=== PATIENT | male | born 1985 | race Caucasian/White ===

== ENCOUNTER 2017-08-14 10:04 | Inpatient (IN) | payer SELFPAY ==
[2017-08-14] MEDS: ONDANSETRON PF 4 MG/2 ML VIAL. IV (10:34)
[2017-08-14] MEDS: MORPHINE SULFATE 4 MG/ML DISP.SYRIN. IV ×5 (10:35→18:41)
[2017-08-14] MEDS ORDERED: ONDANSETRON PF 4 MG/2 ML VIAL. IV ×2 (10:45→12:45)
[2017-08-14] MEDS ORDERED: ACETAMINOPHEN 325 MG TABLET. PO (10:45)
[2017-08-14] MEDS: IV NORMAL SALINE 500ML BAG 500 ML IV (10:59)
[2017-08-14] MEDS ORDERED: 0.9 % SODIUM CHLORIDE 10 ML DISP.SYRIN. IV (11:15)
[2017-08-14] MEDS ORDERED: LACTULOSE 20 GM/30 ML SOLUTION. PO (11:15)
[2017-08-14] MEDS ORDERED: CALCIUM CARBONATE 500 MG TAB.CHEW PO (11:15)
[2017-08-14] MEDS ORDERED: MORPHINE SULFATE 2 MG/ML DISP.SYRIN. IV ×2 (11:15→12:45)
[2017-08-14] MEDS ORDERED: MAGNESIUM HYDROXIDE 2,400 MG/30 ML ORAL.SUSP. PO (11:15)
[2017-08-14 11:39] LABS: ADD MAN DIFF? NO
[2017-08-14 11:41] LABS: BASO % 0 % (0-3); EOS # 0.1 x10^3/uL (0.0-0.7); EOS % 1 % (0-3); HEMATOCRIT 42.1 % (39.0-53.0); HEMOGLOBIN 14.5 g/dL (13.0-17.5); LYMPH # 1.2 x10^3/uL (1.0-4.8); LYMPH % 8 % (24-48); MEAN CORPUSCULAR HEMOGLOBIN 28 pg (25-35); MEAN CORPUSCULAR HGB CONC 35 g/dL (31-37); MEAN CORPUSCULAR VOLUME 82 fL (79-100); MONO # 0.8 x10^3/uL (0.0-1.1); MONO % 5 % (0-9); NEUT # 13.5 x10^3uL (1.8-7.7); NEUT % 86 % (31-73); PLATELET COUNT 297 x10^3/uL (140-400); RED BLOOD COUNT 5.13 x10^6/uL (4.30-5.70); RED CELL DISTRIBUTION WIDTH 12.6 % (11.5-14.5); WHITE BLOOD COUNT 15.6 x10^3/uL (4.0-11.0)
[2017-08-14 11:55] LABS: ANION GAP 10 (6-14); BLOOD UREA NITROGEN 23 mg/dL (8-26); CARBON DIOXIDE 25 mmol/L (21-32); CHLORIDE 104 mmol/L (98-107); GFR 87.7; GLUCOSE 99 mg/dL (70-99); POTASSIUM 3.8 mmol/L (3.5-5.1); SODIUM 139 mmol/L (136-145)
[2017-08-14] MEDS ORDERED: fentaNYL PF VIAL 100 MCG/2 ML VIAL (12:17)
[2017-08-14] MEDS ORDERED: ROCURONIUM 50 MG/5 ML VIAL. ×2 (12:17→13:27)
[2017-08-14] MEDS ORDERED: MIDAZOLAM HCL/PF 2 MG/2 ML VIAL. (12:17)
[2017-08-14] MEDS ORDERED: NEOSTIGMINE METHYLSULFATE 5 MG/5 ML SYRINGE. (12:17)
[2017-08-14] MEDS ORDERED: SUCCINYLCHOLINE 200 MG/10 ML VIAL. (12:17)
[2017-08-14] MEDS ORDERED: GLYCOPYRROLATE 1 MG/5 ML VIAL. (12:18)
[2017-08-14] MEDS ORDERED: PROPOFOL 20 ML IV ×2 (12:18→12:54)
[2017-08-14] MEDS ORDERED: DEXAMETHASONE SOD PHOS 20 MG/5 ML VIAL. (12:18)
[2017-08-14] MEDS ORDERED: LIDOCAINE 2% PF Vial for OR 5 ML VIAL. (12:18)
[2017-08-14] MEDS ORDERED: ONDANSETRON PF 4 MG/2 ML VIAL. (12:18)
[2017-08-14] MEDS ORDERED: KETOROLAC 30 MG/ML INJ FOR OR. INJ (12:18)
[2017-08-14] MEDS: IV RINGERS,LACTATED 1000ML 1,000 ML IV ×3 (12:26→20:22)
[2017-08-14] MEDS ORDERED: LIDOCAINE 1% PF 2 ML VIAL. ID ×2 (12:30→12:45)
[2017-08-14] MEDS ORDERED: MIDAZOLAM HCL/PF 2 MG/2 ML VIAL. IV (12:30)
[2017-08-14] MEDS ORDERED: fentaNYL PF VIAL 100 MCG/2 ML VIAL IV ×4 (12:30→12:45)
[2017-08-14 12:42] LABS: % BANDS 4 % (0-9); % EOS 1 % (0-5); % LYMPHS 5 % (24-48); % SEGS 90 % (35-66); PLT ESTIMATE ADEQUATE (ADEQUATE)
[2017-08-14] MEDS ORDERED: PROCHLORPERAZINE 10 MG/2 ML VIAL. IV (12:45)
[2017-08-14] MEDS: LIDOCAINE 1% PF 30 ML VIAL. (13:06)
[2017-08-14] MEDS: BUPIVACAINE MPF 0.5% 30 ML VIAL. (13:06)
[2017-08-14] MEDS ORDERED: PHENYLEPHRINE in 0.9% NACL PF 1 MG/10 ML SYRINGE. IV (13:11)
[2017-08-14] MEDS: IV 1/2 NORMAL SALINE 1,000 ML IV ×2 (15:22→22:00)
[2017-08-14] MEDS: DIPHTH,PERTUSS(ACELL),TET TOX 0.5 ML DISP.SYRIN. VAX IM (20:28)
[2017-08-14] MEDS: oxyCODONE/APAP 5/325 1 TAB TABLET PO (21:15)
[2017-08-14] MEDS: SENNOSIDES/DOCUSATE 8.6/50MG TABLET. PO (22:54)
[2017-08-14] MEDS: oxyCODONE IR 5 MG TABLET PO (22:54)
[2017-08-15] MEDS: oxyCODONE/APAP 5/325 1 TAB TABLET PO (01:04)
[2017-08-15] MEDS: oxyCODONE IR 5 MG TABLET PO (04:56)
[2017-08-15] MEDS: oxyCODONE/APAP 10/325 1 TAB TABLET PO ×2 (08:32→12:32)
[2017-08-15] MEDS: SENNOSIDES/DOCUSATE 8.6/50MG TABLET. PO (09:37)
== END 2017-08-15 12:11 | disposition home or self-care (01) | DRG 512 ==
LOC: ER 10:04 → 4 NORTH 10:38
PROC: 0PSJ04Z Reposition Left Radius with Internal Fixation Device, Open Approach (ICD-10-PCS; principal; 2017-08-14 12:41)
PROC: 0PSL04Z Reposition Left Ulna with Internal Fixation Device, Open Approach (ICD-10-PCS; 2017-08-14 12:41)
PROC: 2W3DX1Z Immobilization of Left Lower Arm using Splint (ICD-10-PCS; 2017-08-14 12:41)
DX: S52.252B Displaced comminuted fracture of shaft of ulna, left arm, initial encounter for open fracture type I or II (principal); S52.352B Displaced comminuted fracture of shaft of radius, left arm, initial encounter for open fracture type I or II; Z82.49 Family history of ischemic heart disease and other diseases of the circulatory system; V29.88XA Motorcycle rider (driver) (passenger) injured in other specified transport accidents, initial encounter; Y93.55 Activity, bike riding; Y92.828 Other wilderness area as the place of occurrence of the external cause; Y99.8 Other external cause status
CPT/HCPCS: 29125; 36415; 73070; 73090; 73100; 76000; 80048; 85007; 85025; 90715; 96361; 96365; 96374; 99291; A7015; C1713; J0330; J0690; J1100; J1885; J2250; J2270; J2370; J2405; J2704; J2710; J3010; J3490; J7040; J7120